=== PATIENT | male | born 1965 | race Caucasian/White ===

== ENCOUNTER 2019-06-24 07:21 | Day surgery (SDC) | payer BC, OTHER ==
[~2019-06-24 07:21] MED LIST: Lactated Ringers 1,000 ML IV ONE; Lactated Ringers 1,000 ML IV SCH; MEFOXIN 2 GM PREMIX** 2 GM/50 ML ML IV ONE
[2019-06-24] MEDS ORDERED: Sensorcaine 0.25% 10 ML ONE (07:47)
[2019-06-24] MEDS ORDERED: Lactated Ringers 1,000 ML IV ONE (07:47)
[2019-06-24] MEDS ORDERED: Quelicin Fliptop 200 MG/10 ML ONE (08:41)
[2019-06-24] MEDS ORDERED: Zemuron 100 MG/10 ML ONE ×2 (08:41→09:33)
[2019-06-24] MEDS ORDERED: SUBLIMAZE 250 MCG/5 ML ONE (08:41)
[2019-06-24] MEDS ORDERED: DIPRIVAN 200 MG/20 ML IV ONE (08:41)
[2019-06-24] MEDS ORDERED: Versed 2 MG/2 ML Injection ONE (08:41)
--- NOTE | 2019-06-24 08:49 | OP ---
DATE OF SURGERY: 06/24/2019 HISTORY OF PRESENT ILLNESS: The patient is a 54 year-old with epigastric pain, right upper quadrant pain radiating to the back worse over the past couple of weeks. He required an emergency room visit with IV. He had MRCP. He is increasingly symptomatic acute exacerbation of chronic cholecystitis. I feel the patient would benefit from cholecystectomy. Risk and benefits explained in detail but not limited to. PAST MEDICAL HISTORY: Restless leg syndrome, sleep apnea. PAST SURGICAL HISTORY: Left partial knee replacement. Hernia repair. Torn meniscus repair. MEDICATIONS: Requip. ALLERGIES: NKDA. FAMILY HISTORY: Bone cancer, diabetes, heart disease. His father from myocardial infarction in the past. SOCIAL HISTORY: No smoking or alcohol abuse. REVIEW OF SYSTEMS: Fourteen systems reviewed. No chest pain or palpitations other systems negative or noncontributory as above and per preadmission questionnaire. He is a little bit overweight. No chest pain or palpitations. PHYSICAL EXAMINATION: GENERAL: No acute distress. HEENT: Sclerae nonicteric. NECK: No JVD. CHEST: Equal excursion, nonlabored breathing. CVS: Regular rate and rhythm. ABDOMEN: Soft. A little bit overweight. EXTREMITIES: No cyanosis. He had left knee surgery in the past. NEURO: Alert, moving extremities symmetrically. No gross motor deficits noted. IMPRESSION: Symptomatic biliary dyskinesia chronic cholecystitis. I feel the patient would benefit from cholecystectomy. Risks and benefits explained in detail but not limited to bleeding or infection. risk of trocar injury or hernia, risk of bile, bladder, blood vessel injury, risk of bile leak, bile duct injury, retained stone or sludge possibly requiring open procedure, ongoing morbidity possibly requiring ERCP or other open procedure, general risk of anesthesia, deep venous thrombosis, pulmonary embolism, pneumonia, possibility the procedure may not improve her symptoms. She may need further work up and/or testing, endoscopy or other studies or procedures. He understands and agrees to the planned procedure, will proceed with laparoscopic cholecystectomy with possible open as an outpatient.
[2019-06-24] MEDS ORDERED: BRIDION 200MG/2ML IV ONE (09:17)
[2019-06-24] MEDS ORDERED: Ephedrine Sulfate 50 MG/ML ONE (09:28)
[2019-06-24] MEDS ORDERED: TORAdol 30 mg Injection ONE (09:54)
[2019-06-24] MEDS ORDERED: Zofran 4 MG/2 ML VIAL ONE (09:55)
[2019-06-24] MEDS ORDERED: DILAUDID 2 MG INJECTION ONE (09:58)
[2019-06-24] MEDS ORDERED: SUBLIMAZE 100 MCG/2 ML ONE (10:04)
[2019-06-24 12:40] VITALS: O2SAT 94
[2019-06-24 12:49] VITALS: PULSE 76
[2019-06-24 13:06] VITALS: BP 127/64
--- NOTE | 2019-06-24 14:19 | OP ---
SURGERY DATE/TIME: 06/24/2019 0842 PREOPERATIVE DIAGNOSIS: Acute exacerbation of symptomatic cholelithiasis, chronic cholecystitis, increasing aches and pains. POSTOPERATIVE DIAGNOSIS: Acute exacerbation of symptomatic cholelithiasis, chronic cholecystitis, increasing aches and pains. PROCEDURE: Laparoscopic cholecystectomy SURGEON: Dr. Desmond Bustamante. ANESTHESIA: General. ESTIMATED BLOOD LOSS: Minimal. INDICATIONS: As noted above. Risks and benefits explained in detail but not limited to and consent obtained. DESCRIPTION OF PROCEDURE AND FINDINGS: The patient was taken to the operating room. General anesthesia induced. Abdomen prepped and draped in the usual sterile fashion. After official time out and no disagreement with planned procedure, a transverse incision made above his old prior hernia repair. As well as two - 5 mm right upper quadrant incisions made and 11 mm epigastric port site. As the Veress was getting stuck in the preperitoneal fat in the lower epigastrium area, it was elected to go to the right upper quadrant. Fascia elevated upwards with towel clamps. Veress needle easily inserted and tested with saline. Pneumoperitoneum accomplished insufflating opening pressure of 0-15. A 5 mm bladeless port and camera inserted without difficulty. There was no evidence of any intra-abdominal injury secondary to trocar insertion. There was no evidence of any intra-abdominal injury secondary to the needle placement back in the lower epigastric area. A 5 mm bladeless port was inserted here. The camera was then relocated here. Additional 5 mm right upper quadrant port and 11 mm epigastric ports were placed. The gallbladder grasped retracted over the edge of the liver and laterally away from Calot's triangle dissecting posterior, lateral to anterior fashion. The main cystic artery isolated directly on the gallbladder. It was clipped and divided in usual fashion. There is a small lymphatic or venule that was oozing directly on the site of infundibulum area this is carefully dissected free away from the cystic duct and infundibular area. It was clipped and divided. The cystic duct and infundibular area slowly and carefully well skeletonized until the critical view obtained both anteriorly and posteriorly. Once this was accomplished cystic duct clipped x3 and divided in usual fashion. The patient had a lateral pulsatile artery that was oozing on the lateral edge to the gallbladder-liver edge. This required clipping x2. The gallbladder slowly and carefully dissected free from its dense attachment to liver bed, clipping additional oozing side branches off this quite vascular gallbladder directly on the gallbladder wall as necessary. It should be noted one of the grasper tore a small hole in the body of the gallbladder spilling some sludge and a little bit of stones. These were retrieved with a blunt scoop. Gallbladder slowly and carefully dissected free. Just prior to releasing from final attachments to the anterior edge of the liver, the liver bed re-inspected. Clips noted in place cystic duct and cystic artery stumps. No signs of any active bleeding or bile leakage from the liver bed itself. Gallbladder released from final attachments, placed in a bad provided by the hospital and then pulled up and out the epigastric 10/11 port site that had been enlarged slightly. Port is replaced. Copious amount of irrigation accomplished lateral to the liver and subhepatic space irrigating until clear. Liver bed re-inspected. Clips noted in place cystic duct and cystic artery stumps. No signs of any active bleeding or bile leakage. There was no visible stone material remaining in the abdomen. The clips were intact on the cystic artery stump and cystic duct stump. No sign of any bile leakage or bleeding from the liver bed or cystic duct stump. Copious irrigation irrigating clear. It was felt there is no benefit from drain placement. At this point the 10/11 fascial defect closed with puncture closure device with #1 Vicryl. Careful inspection of abdomen revealed no evidence of issues secondary to trocar insertion. Pneumoperitoneum decompressed. An additional UR needle placed in the fascial defect in epigastrium. There were no immediate complications. The wound irrigated out. Skin incision closed with 4-0 Vicryl. 0.25% Marcaine local injected along the skin incision fascial defect. The patient tolerated the procedure well. There were no immediate complications.
== END 2019-06-24 13:07 | disposition home or self-care (01) ==
LOC: SDC 07:21
PROVIDERS: ATTEND Surgery
DX: K80.10 Calculus of gallbladder with chronic cholecystitis without obstruction (principal)
CPT/HCPCS: 88304; 94660; J0330; J0694; J1170; J1885; J2250; J2405; J2704; J3010